=== PATIENT | female | born 1975 | race Caucasian/White ===

== ENCOUNTER 2019-07-05 19:27 | Emergency (ER) | payer BC ==
[2019-07-05 19:52] VITALS: BP 128/81
--- NOTE | 2019-07-05 20:16 | UC ---
Complaint Female HPI - HPI Summary HPI Summary: fever on/off for 2 days, vulvar pain and burning---feels nauseated and fatigued - History Of Current Complaint Chief Complaint: UCGU Stated Complaint: BURNING URINATION Time Seen by Provider: 07/05/19 20:14 Hx Obtained From: Patient Hx Last Menstrual Period: today ?: No Onset/Duration: Sudden Onset, Lasting Days - 2, Still Present Timing: Constant Pain Intensity: 4 Pain Scale Used: 0-10 Numeric Character: Burning Aggravating Factor(s): [place] - unable do to pain, Urination Alleviating Factor(s): Position Associated Signs And Symptoms: Positive: Nausea - Allergies/Home Medications Allergies/Adverse Reactions: Allergies Allergy/AdvReac Type Severity Reaction Status Date / Time No Known Allergies Allergy Verified 07/05/19 21:07 Home Medications: Home Medications Miconazole TOPICAL CREAM 2%* [Monistat 2%*] 1 applic TOPICAL DAILY 07/05/19 [ History Confirmed 07/05/19] PMH/Surg Hx/FS Hx/Imm Hx Previously Healthy: Yes - Surgical History Surgical History: Yes Surgery Procedure, Year, and Place: wisdom teeth removal - Family History Known Family History: Positive: None - Social History Occupation: Works From/At Home Lives: With Family Alcohol Use: None Substance Use Type: None Smoking Status (MU): Never Smoked Tobacco Review of Systems All Other Systems Reviewed And Are Negative: Yes Constitutional: Positive: Negative Skin: Positive: Negative Eyes: Positive: Negative ENT: Positive: Negative Respiratory: Positive: Negative Cardiovascular: Positive: Negative Gastrointestinal: Positive: Negative Genitourinary: Positive: Dysuria, Other - vulvar pain and burning Motor: Positive: Negative Neurovascular: Positive: Negative Musculoskeletal: Positive: Negative Neurological: Positive: Negative Psychological: Positive: Negative Is Patient Immunocompromised?: No Physical Exam Triage Information Reviewed: Yes Appearance: Well-Nourished, Ill-Appearing, Pain Distress Vital Signs: Initial Vital Signs Temp 101 F 07/05/19 19:49 Pulse 78 07/05/19 19:49 Resp 16 07/05/19 19:49 BP 128/81 07/05/19 19:49 Pulse Ox 97 07/05/19 19:49 Vital Signs Reviewed: Yes Eye Exam: Normal Eyes: Positive: Conjunctiva Clear ENT Exam: Normal ENT: Positive: Normal ENT inspection, Hearing grossly normal. Negative: Trismus , Muffled voice, Hoarse voice Respiratory Exam: Normal Respiratory: Positive: Chest non-tender, No respiratory distress, No accessory muscle use Cardiovascular Exam: Normal Cardiovascular: Positive: RRR, Pulses Normal, Brisk Capillary Refill Abdominal Exam: Normal Abdomen Description: Positive: Nontender, No Organomegaly, Soft. Negative: CVA Tenderness (R), CVA Tenderness (L) Pelvic Exam: Positive: Other - deferred as I will send patient to ED for lab studies Musculoskeletal Exam: Normal Neurological Exam: Normal Psychological Exam: Normal Skin Exam: Normal Complaint Female Dx - Course Course Of Treatment: to ED for further lab assessment of febrile illness and pain - Differential Dx/Diagnosis Provider Diagnosis: Fever and chills Discharge - Sign-Out/Discharge Documenting (check all that apply): Patient Departure All imaging exams completed and their final reports reviewed: No Studies - Discharge Plan Condition: Stable Disposition: HOME-RECOMMEND TO ED Patient Education Materials: Fever in Adults (ED), Pelvic Pain in Women (ED) Referrals: No Primary Care Phys,NOPCP [Primary Care Provider] - Additional Instructions: Please go to EMERGENCY DEPARTMENT for further assessment and care - Billing Disposition and Condition Condition: STABLE Disposition: Home-Recommend to ED
== END 2019-07-05 20:27 | disposition home health service (06) ==
LOC: UCEAST 19:27
DX: R50.9 Fever, unspecified (principal); R10.2 Pelvic and perineal pain; R30.0 Dysuria
CPT/HCPCS: 81002; 81025; 87086; 99202; G0463

== ENCOUNTER 2019-07-05 21:01 | Emergency (ER) | payer BC ==
--- NOTE | 2019-07-05 22:49 | ED ---
GI/ HPI - HPI Summary HPI Summary: 43 year old F patient presenting to [facility] with a chief complaint of external vaginal pain since earlier today, 07/05/19, at 8:00 rated at 3/10 in severity. Patient reports painful and tender vaginal area that [place] a lot in the external portion rather than in the entrance of the vagina. Patient currently has a fever that started on Saturday, 2 days ago, 07/03/19, when she had a low grade fever that she thought was due to her 2 kids who passed around a low grade fever this past week. Patient denies any urinary symptoms and is concerned for a UTI. Hx yeast infection. Patient denies swelling but is sensitive and tender in the vaginal area. Patient denies pelvis or abdominal pain, discharge, drainage, vomiting, or nausea. Patient visited [facility] who sent her to [facility]. Symptoms aggravated by nothing. Symptoms alleviated by nothing. - History of Current Complaint Chief Complaint: EDUrogenitalProblems Time Seen by Provider: 07/05/19 22:34 Stated Complaint: TENDER/PAINFUL IN GENITAL AREA AND FEVER PER PT Hx Obtained From: Patient Hx Last Menstrual Period: today Onset/Duration: Started Hours Ago, Still Present Timing: Lasting Hours Pain Intensity: 3 Pain Characteristics: Other: - sensitive, tender, burning Associated Signs and Symptoms: Positive: Fever, Other: - dnies pelvis pain, drainage. Negative: Nausea, Vomiting, Discharge, Dysuria, Abdominal Pain Additional Signs & Symptoms: Negative: Genital Swelling - Allergy/Home Medications Allergies/Adverse Reactions: Allergies Allergy/AdvReac Type Severity Reaction Status Date / Time No Known Allergies Allergy Verified 07/05/19 21:07 Home Medications: Home Medications Ibuprofen TAB* 200 mg PO SEE INSTRUCTIONS 07/05/19 [History Confirmed 07/05/19] PMH/Surg Hx/FS Hx/Imm Hx Endocrine/Hematology History: Denies: Hx Diabetes Respiratory History: Denies: Hx Asthma Sensory History: Denies: Hx Contacts or Glasses Opthamlomology History: Denies: Hx Contacts or Glasses - Surgical History Surgery Procedure, Year, and Place: wisdom teeth removal Infectious Disease History: No Infectious Disease History: Denies: Traveled Outside the [place] in Last 30 Days - Family History Known Family History: Positive: Cardiac Disease - heart attacks, , Other - myeloproliferative disease, cancer Negative: Diabetes - Social History Alcohol Use: None Hx Substance Use: No Substance Use Type: Reports: None Hx Tobacco Use: No Smoking Status (MU): Never Smoked Tobacco Review of Systems Positive: Fever Positive: Other - denies pelvis pain. Negative: Abdominal Pain, Vomiting, Nausea Positive: pain - vaginal pain, other - dnies drainage and swelling . Negative: dysuria, discharge All Other Systems Reviewed And Are Negative: Yes Physical Exam - Summary Physical Exam Summary: Appearance: Well-appearing, Well-nourished, lying in bed comfortably Skin: Warm, dry, no obvious rash Eyes: sclera anicteric, no conjunctival pallor ENT: mucous membranes moist, pharynx appears normal Neck: Supple, nontender Respiratory: Clear to auscultation, no signs of respiratory distress Cardiovascular: Normal S1, S2. No murmurs. Normal distal pulses in tibial and radial bilaterally. Abdomen: Soft, nontender, normal active bowel sounds present Musculoskeletal: Normal, Strength/ROM Intact Neurological: A&Ox3, awake and alert, mentation is normal, speech is fluent and appropriate Psychiatric: affect is normal, does not appear anxious or depressed Genital- several bilateral ulcerations of introitus of the vagina, ulcers are small ranging from 3-5 mm but quite tender and have erythematous borders Triage Information Reviewed: Yes Vital Signs On Initial Exam: Initial Vitals Temp Pulse Resp BP Pulse Ox 100.1 F 77 16 137/91 97 07/05/19 21:04 07/05/19 21:04 07/05/19 21:04 07/05/19 21:04 07/05/19 21:04 Vital Signs Reviewed: Yes Diagnostics - Vital Signs Vital Signs Temp Pulse Resp BP Pulse Ox 07/05/19 21:04 100.1 F 77 16 137/91 97 - Laboratory Lab Statement: Any lab studies that have been ordered have been reviewed, and results considered in the medical decision making process. Re-Evaluation - Re-Evaluation First Eval Re-Evaluation Time: 23:03 Comment: Physician discusses plan of care with patient. Second Eval Re-Evaluation Time: 00:02 Comment: Physician discusses plan of care with patient. GIGU Course/Dx - Course Course Of Treatment: This is a middle aged woman whose only sexual partner ever is her . She presents with painful vaginal ulcers. Differential includes herpes simplex, Lipschultz ulcers, chancroid. I sent off herpes PCR swab and EBV titer, those will need to be followed up by her agile developer. Given the sexual history I am reluctant to make the diagnosis of herpes, although this is certainly my main concern. For now symptomatic treatment with lidocaine cream. - Diagnoses Provider Diagnoses: Vaginal ulcer Discharge - Sign-Out/Discharge Documenting (check all that apply): Patient Departure - discharge Patient Received Moderate/Deep Sedation with Procedure: No - Discharge Plan Condition: Stable Disposition: HOME Referrals: [facility] [Outside] - 3 Days Additional Instructions: Follow up with primary care provider within 3 days. Return to the ED for any new or worsening symptoms. - Billing Disposition and Condition Condition: STABLE Disposition: Home - Attestation Statements Document Initiated by Elderibe: Yes Documenting Scribe: Lizy Arredondo Provider For Whom Ga is Documenting (Include Credential): Dr. Tex Verde MD Scribe Attestation: Lizy Demarco scribed for Dr. Tex Verde MD on 07/06/19 at 0541. Scribe Documentation Reviewed: Yes Provider Attestation: The documentation as recorded by the Lizy andrew accurately reflects the service I personally performed and the decisions made by me, Dr. Tex Verde MD Status of Scribe Document: Viewed
[2019-07-05] MEDS ORDERED: Lidocaine 5% OINT* TUBE TOPICAL ONE (23:07)
[2019-07-06 00:50] VITALS: BP 115/75
[2019-07-07 12:04] LABS: EBV Capsid Ag IgG Ab Positive (Negative); EBV Capsid Ag IgM Ab Negative (Negative); Epstein-Barr Nuclear Antigen Positive (Negative)
[2019-07-07 19:36] LABS: Herpes Source vaginal lesions
== END 2019-07-06 00:49 | disposition home or self-care (01) ==
LOC: ED 21:01
DX: N76.5 Ulceration of vagina (principal)
CPT/HCPCS: 86664; 86665; 87529; 99282; A9270-GY

== ENCOUNTER 2019-12-21 18:16 | Emergency (ER) | payer BC ==
[2019-12-21 18:40] VITALS: BP 108/73
--- NOTE | 2019-12-21 19:09 | UC ---
Respiratory Complaint HPI - HPI Summary HPI Summary: The patient is a 44-year-old female who has had a cough for 4 weeks or longer. She has nasal congestion alternating with runny nose. Initially the cough is worse when supine however now it is worse when she first gets up in the morning. She has no chest pain or shortness of breath. Her cough has been productive. She has had no fever or chills. She denies any shortness of breath. She does have some chest discomfort from coughing. She has no nausea vomiting or diarrhea. No one else at home is sick. She denies any myalgias. - History of Current Complaint Chief Complaint: UCGeneralIllness Stated Complaint: COUGH Time Seen by Provider: 12/21/19 19:05 Hx Last Menstrual Period: control Onset/Duration: Gradual Onset, Lasting Weeks Timing: Constant Severity Initially: Mild Severity Currently: Moderate Pain Intensity: 0 Pain Scale Used: 0-10 Numeric Character: Cough: Productive Aggravating Factors: Nothing Alleviating Factors: Nothing Associated Signs And Symptoms: Positive: Nasal Congestion, Sinus Discomfort - Allergies/Home Medications Allergies/Adverse Reactions: Allergies Allergy/AdvReac Type Severity Reaction Status Date / Time No Known Allergies Allergy Verified 07/05/19 21:07 PMH/Surg Hx/FS Hx/Imm Hx Previously Healthy: Yes - Surgical History Surgical History: Yes Surgery Procedure, Year, and Place: wisdom teeth removal - Family History Known Family History: Positive: Cardiac Disease - heart attacks, , Other - myeloproliferative disease, cancer Negative: Diabetes - Social History Alcohol Use: Rare Substance Use Type: None Smoking Status (MU): Never Smoked Tobacco Review of Systems All Other Systems Reviewed And Are Negative: Yes Constitutional: Positive: Negative Skin: Positive: Negative Eyes: Positive: Negative ENT: Positive: Nasal Discharge Respiratory: Positive: Cough Cardiovascular: Positive: Negative Gastrointestinal: Positive: Negative Genitourinary: Positive: Negative Motor: Positive: Negative Neurovascular: Positive: Negative Musculoskeletal: Positive: Negative Neurological: Positive: Negative Psychological: Positive: Negative Physical Exam Triage Information Reviewed: Yes Appearance: Well-Appearing, No Pain Distress, Well-Nourished Vital Signs: Initial Vital Signs Temp 98.3 F 12/21/19 18:32 Pulse 78 12/21/19 18:32 Resp 16 12/21/19 18:32 BP 108/73 12/21/19 18:32 Pulse Ox 100 12/21/19 18:32 Vital Signs Reviewed: Yes Eyes: Positive: Conjunctiva Clear ENT: Positive: Hearing grossly normal, Nasal congestion, Nasal drainage, TMs normal, Uvula midline. Negative: Tonsillar swelling, Tonsillar exudate, Trismus , Muffled voice, Hoarse voice, Dental tenderness, Sinus tenderness Neck: Positive: Supple, Nontender, Enlarged Nodes @ - few scatterred ant cer LN Respiratory: Positive: No respiratory distress, No accessory muscle use, Crackles - intermittent LLL crackles Cardiovascular: Positive: RRR, No Murmur Musculoskeletal: Positive: ROM Intact, No Edema Neurological: Positive: Alert Psychological Exam: Normal Skin Exam: Normal Diagnostics - Radiology No standard instances Radiology Interpretation Completed By: ED Physician Summary of Radiographic Findings: no infiltrate noted. stigmata of copd Respiratory Course/Dx - Differential Dx/Diagnosis Provider Diagnosis: Bronchitis Discharge ED - Sign-Out/Discharge Documenting (check all that apply): Patient Departure All imaging exams completed and their final reports reviewed: No - Discharge Plan Condition: Stable Disposition: HOME Prescriptions: Amoxicillin PO (*) [Amoxicillin 875 MG (*)] 875 mg PO BID #14 tab Benzonatate CAP* [Tessalon CAP*] 100 - 200 mg PO TID PRN #28 cap PRN Reason: Cough Patient Education Materials: Acute Bronchitis (ED) Referrals: No Primary Care Phys,NOPCP [Primary Care Provider] - Additional Instructions: see your provider at [facility] in 1-2 weeks if not completely better you can also try robitussin DM recheck here for new or worsening symptoms - Billing Disposition and Condition Condition: STABLE Disposition: Home
--- NOTE | 2019-12-22 14:50 | UC ---
- Progress Note Progress Note: RADIOLOGY REPORT REVIEWED. NO EVIDENCE FOR ACTIVE CARDIOPULMONARY DISEASE. NO CHANGE IN MGMT Course/Dx - Diagnoses Provider Diagnoses: Bronchitis Discharge ED - Sign-Out/Discharge Documenting (check all that apply): Post-Discharge Follow Up All imaging exams completed and their final reports reviewed: Yes - Discharge Plan Condition: Stable Disposition: HOME Prescriptions: Amoxicillin PO (*) [Amoxicillin 875 MG (*)] 875 mg PO BID #14 tab Benzonatate CAP* [Tessalon CAP*] 100 - 200 mg PO TID PRN #28 cap PRN Reason: Cough Patient Education Materials: Acute Bronchitis (ED) Referrals: No Primary Care Phys,NOPCP [Primary Care Provider] - Additional Instructions: see your provider at [facility] in 1-2 weeks if not completely better you can also try robitussin DM recheck here for new or worsening symptoms - Billing Disposition and Condition Condition: STABLE Disposition: Home
== END 2019-12-21 19:48 | disposition home or self-care (01) ==
LOC: UCEAST 18:16
DX: J40 Bronchitis, not specified as acute or chronic (principal); R09.89 Other specified symptoms and signs involving the circulatory and respiratory systems; R09.81 Nasal congestion
CPT/HCPCS: 71046; 99212; G0463